=== PATIENT | male | born 1940 | race Caucasian/White ===

== ENCOUNTER 2021-02-10 12:05 | Inpatient (IN) | payer MEDICARE, MEDICAID ==
[~2021-02-10] VITALS: Ht 170.2 cm; Wt 77.1 kg
[2021-02-10 13:10] LABS: BASOPHILS % 0.6 % (0.0-2.0); EOSINOPHILS % 2.3 % (0.0-5.0); HEMATOCRIT. 47.2 % (42.0-52.0); HEMOGLOBIN. 16.1 g/dL (14.0-18.0); MEAN CORPUSCULAR HEMOGLOBIN 31.3 pg (28.0-32.0); MEAN PLATELET VOLUME 10.1 fl (7.4-10.4); MONOCYTES % 7.5 % (2.0-8.0); NEUTROPHILS % 77.6 % (40.0-76.0); PLATELET 169 x1000/uL (130-400); RED BLOOD CELL COUNT 5.13 mill/uL (4.7-6.1); RED CELL DISTRIBUTION WIDTH 14.2 % (11.6-14.6)
[2021-02-10 13:18] LABS: CHLORIDE 103 mEq/L (98-107); PROTHROMBIN TIME 10.7 sec (9.6-11.0)
[2021-02-10 13:23] LABS: ETHANOL BLOOD < 10 mg/dL
[2021-02-10] MEDS ORDERED: MAGNESIUM/ALUMINUM HYDROXIDE/SIMETHICONE 30ML UDC PO PRN (17:00)
[2021-02-10] MEDS ORDERED: HYDROCODONE/ACETAMINOPHEN 5/325MG TABLET PO PRN (17:00)
[2021-02-10] MEDS ORDERED: DOCUSATE SODIUM 100MG CAPSULE PO PRN (17:00)
[2021-02-10] MEDS ORDERED: ACETAMINOPHEN 325MG TABLET PO PRN (17:00)
[2021-02-10] MEDS ORDERED: ONDANSETRON HCL 4MG/2ML INJ IV PRN (17:00)
[2021-02-10] MEDS: ENOXAPARIN 40MG/0.4ML SYR SUBCUT SCH (18:22)
[2021-02-10] MEDS: LISINOPRIL 20MG TABLET PO SCH (18:22)
[2021-02-10] MEDS: AMLODIPINE 10MG TABLET PO SCH (18:23)
[2021-02-10 21:00] VITALS: BP 145/71
[2021-02-10] MEDS: CLONIDINE 0.1MG TABLET PO PRN (21:33)
[2021-02-11] VITALS: BP 129/61
[2021-02-11 04:00] VITALS: BP 142/89
[2021-02-11] MEDS ORDERED: ALLO300T2 PO (04:44)
[2021-02-11] MEDS ORDERED: METO-396 PO (04:44)
[2021-02-11] MEDS ORDERED: AMLO5TAB88 PO (04:44)
[2021-02-11] MEDS ORDERED: CEPH500C2 PO (04:44)
[2021-02-11] MEDS ORDERED: ATOR-2 PO (04:44)
[2021-02-11] MEDS ORDERED: OMEP20CA14 PO (04:44)
[2021-02-11 07:47] LABS: BASOPHILS % 0.7 % (0.0-2.0); EOSINOPHILS % 3.7 % (0.0-5.0); HEMATOCRIT. 45.9 % (42.0-52.0); HEMOGLOBIN. 15.8 g/dL (14.0-18.0); LYMPHOCYTES % 17.8 % (20.0-50.0); MEAN CORPUSCULAR HEMOGLOBIN 31.4 pg (28.0-32.0); MEAN CORPUSCULAR VOLUME 91.4 fL (80.0-94.0); MONOCYTES % 8.2 % (2.0-8.0); NEUTROPHILS % 69.6 % (40.0-76.0); PLATELET 165 x1000/uL (130-400); RED BLOOD CELL COUNT 5.02 mill/uL (4.7-6.1); RED CELL DISTRIBUTION WIDTH 14.5 % (11.6-14.6)
[2021-02-11 08:00] VITALS: BP 154/103
[2021-02-11 08:03] LABS: CLARITY URINE CLEAR (CLEAR); COLOR URINE YELLOW (YELLOW); KETONES URINE NEGATIVE (NEGATIVE); LEUKOCYTE ESTERASE URINE NEGATIVE (NEGATIVE); NITRITE URINE NEGATIVE (NEGATIVE); OCCULT BLOOD URINE NEGATIVE (NEGATIVE); PROTEIN URINE 2+ (NEGATIVE); SPECIFIC GRAVITY URINE 1.016 (1.005-1.030); UROBILINOGEN URINE 0.2 E.U./dL (0.2-1.0)
[2021-02-11 08:06] LABS: CHLORIDE 102 mEq/L (98-107)
[2021-02-11 08:17] LABS: LDL CHOLESTEROL 72 mg/dL (5-100)
[2021-02-11 08:19] LABS: HDL CHOLESTEROL 39 mg/dL (40-59)
[2021-02-11] MEDS: AMLODIPINE 10MG TABLET PO SCH (08:20)
[2021-02-11] MEDS: LISINOPRIL 20MG TABLET PO SCH (08:20)
[2021-02-11 09:46] LABS: CANNABINOID URINE SCREEN NEGATIVE (NEGATIVE); OPIATES URINE SCREEN NEGATIVE (NEGATIVE)
[2021-02-11 09:48] LABS: *AMPHETAMINES SCREEN URINE NEGATIVE (NEGATIVE); *BARBITURATES SCREEN URINE NEGATIVE (NEGATIVE); *BENZODIAZEPINES SCREEN URINE NEGATIVE (NEGATIVE); *COCAINE SCREEN URINE NEGATIVE (NEGATIVE); METHADONE URINE SCREEN NEGATIVE (NEGATIVE); PHENCYCLIDINE URINE SCREEN NEGATIVE (NEGATIVE)
[2021-02-11] MEDS: ASPIRIN 81MG TABLET PO SCH (11:48)
[2021-02-11 12:00] VITALS: BP 173/102
[2021-02-11] MEDS: CLONIDINE 0.1MG TABLET PO PRN ×2 (12:02→21:01)
[2021-02-11] MEDS: METOPROLOL SUCCINATE 50MG ER TABLET PO SCH (16:52)
[2021-02-11] MEDS: ENOXAPARIN 40MG/0.4ML SYR SUBCUT SCH (16:53)
[2021-02-11 18:00] VITALS: BP 157/88
[2021-02-11 20:00] VITALS: BP 195/97
[2021-02-11] MEDS ORDERED: ATORVASTATIN CALCIUM 40MG TABLET PO SCH (21:00)
[2021-02-11] MEDS: ATORVASTATIN CALCIUM 40MG TABLET PO SCH ×2 (21:01→21:03)
[2021-02-12] VITALS: BP 149/78
[2021-02-12 04:00] VITALS: BP 123/96
[2021-02-12 08:00] VITALS: BP 157/89
[2021-02-12] MEDS: ASPIRIN 81MG TABLET PO SCH (09:11)
[2021-02-12] MEDS: AMLODIPINE 10MG TABLET PO SCH (09:12)
[2021-02-12] MEDS: METOPROLOL SUCCINATE 50MG ER TABLET PO SCH (09:12)
[2021-02-12] MEDS: LISINOPRIL 20MG TABLET PO SCH (09:12)
[2021-02-12 12:29] VITALS: BP 138/78
[2021-02-12] MEDS ORDERED: LISINOPRIL 20MG TABLET PO SCH (17:00)
== END 2021-02-12 13:10 | disposition home or self-care (01) | DRG 69 ==
LOC: ER 12:58 → 7EST 15:12 → EDBEDREQ 15:30 → EDBEDREQSVC 15:30 → ENRESERV 19:49
PROVIDERS: ADMIT Hospitalist; ATTEND Hospitalist
DX: G45.9 Transient cerebral ischemic attack, unspecified (principal); I67.4 Hypertensive encephalopathy; E78.1 Pure hyperglyceridemia; E78.5 Hyperlipidemia, unspecified; E86.0 Dehydration; G45.4 Transient global amnesia; I10 Essential (primary) hypertension; I16.0 Hypertensive urgency; I25.10 Atherosclerotic heart disease of native coronary artery without angina pectoris; I35.0 Nonrheumatic aortic (valve) stenosis; R73.9 Hyperglycemia, unspecified; F41.9 Anxiety disorder, unspecified; Z20.822 Contact with and (suspected) exposure to COVID-19; R73.03 Prediabetes; R29.703 NIHSS score 3; Z79.82 Long term (current) use of aspirin; Z82.49 Family history of ischemic heart disease and other diseases of the circulatory system; Z87.891 Personal history of nicotine dependence; Z95.1 Presence of aortocoronary bypass graft
CPT/HCPCS: 36415; 70496; 70498; 70551; 71045; 80053; 80061; 80305; 80320; 81003; 82962; 83036; 84484; 85025; 87426; 93005; 93306; 93970; 95816; 99285; J1650; G0480